=== PATIENT | male | born 1960 | race American Indian/Alaskan Native ===

== ENCOUNTER 2021-08-29 05:00 | Emergency (ER) | payer SELFPAY ==
[~2021-08-29 05:00] MED LIST: EPINEPHrine 1 MG/10 ML SYRINGE ONE
[2021-08-29] MEDS ORDERED: SODIUM CHLORIDE 0.9% 1000 ML 1,000 ML ONE ×2 (05:42→05:58)
[2021-08-29] MEDS ORDERED: VERAPAMIL 5 MG/2 ML INJ ONE (05:51)
[2021-08-29] MEDS ORDERED: HEPARIN 10,000 UNITS/10 ML VIAL ONE ×2 (05:51→06:02)
[2021-08-29] MEDS ORDERED: HEPARIN/NS 5000 UNIT/500ML 1,000 ML IR ONE (05:51)
[2021-08-29] MEDS ORDERED: LIDOCAINE (2%) 20 MG/1 ML VIAL 50 ML MDV INFILTRATI ONE (05:52)
[2021-08-29] MEDS ORDERED: NITROGLYCERIN SYRINGE 3 ML ONE (05:52)
[2021-08-29] MEDS ORDERED: ASPIRIN 300 MG RECT SUPP PR ONE (05:52)
--- NOTE | 2021-08-29 05:52 | Emergency Department Report ---
ED CPR HPI - General Stated Complaint: CARDIAC ARREST Time Seen by Provider: 08/29/21 05:47 Source: EMS Mode of arrival: Stretcher Limitations: Altered Mental Status, Physical Limitation - History of Present Illness Initial Comments: 60-year-old male with no known past medical history presents to the hospital after witnessed cardiac arrest while at a gas station. EMS received a call at approximately 4:18 AM and arrived to the scene at 4:35 AM. They found patient in asystole. He was intubated with 7.0 ET tube. He developed PEA and V. tach and during resuscitation efforts received epinephrine x4, sodium bicarb x1, amiodarone 300 mg IV push, 200 J shock, and had a blood glucose of 120. Patient arrived to the ER at 5 AM in PEA arrest - Related Data Previous Rx's Medication Instructions Recorded Last Taken Type amLODIPine 10 mg PO QDAY #30 tablet 01/24/16 Unknown Rx carvediloL [Coreg] 12.5 mg PO BID #60 tablet 01/24/16 Unknown Rx hydrALAZINE [Apresoline TAB] 50 mg PO Q8HR #90 tablet 01/24/16 Unknown Rx Allergies Allergy/AdvReac Type Severity Reaction Status Date / Time No Known Allergies Allergy Unverified 01/21/16 18:34 ED Review of Systems ROS: Stated complaint: CARDIAC ARREST Other details as noted in HPI Comment: Unobtainable due to pts medical conditions ED Past Medical Hx - Past Medical History Hx Hypertension: Yes - Social History Smoking Status: Current Some Day Smoker - Medications Home Medications: Home Medications Medication Instructions Recorded Confirmed Last Taken Type amLODIPine 10 mg PO QDAY #30 tablet 01/24/16 Unknown Rx carvediloL [Coreg] 12.5 mg PO BID #60 tablet 01/24/16 Unknown Rx hydrALAZINE [Apresoline TAB] 50 mg PO Q8HR #90 tablet 01/24/16 Unknown Rx ED Physical Exam - Other Other exam information: General: Unresponsive Head: Atraumatic Eyes: normal appearance ENT: Orally intubated 7.0 ET tube with frothy sputum with bagging Neck: Normal appearance, no midline tenderness Chest: Clear to auscultation bilaterally CV: Initially pulseless Abdomen: Soft, normal bowel sounds, nontender Back: Normal inspection Extremity: No spontaneous movement Neuro: GCS equals to Psych: Unresponsive Skin: Warm to touch ED Course - Reevaluation(s) Reevaluation #1: 08/29/21 05:57 Patient arrived at 5 AM in PEA cardiac arrest. Patient received 7 doses of epinephrine for recurrent PEA arrest and then had V. tach arrest requiring multiple Defibrillator shock at 200 J (x3) and additional amiodarone 150 mg. After return of spontaneous circulation patient medicated with heparin, aspirin, and IV potassium ordered for hypokalemia. Case discussed with interventional several times and they should arrive to the hospital so - Consultations Consultation #1: 08/29/21 05:14 Once patient regained his pulse a stat EKG was performed. Patient shows signs of acute anterior FL. Case discussed with Dr. Naveen Chen who agrees and [facility] has been activated ED Medical Decision Making - EKG Data -: EKG Interpreted by Me (EKG performed at 5:10 AM positive for acute FL) EKG shows normal: sinus rhythm, ST-T waves (anterior st elevation) Rate: bradycardia - Medical Decision Making 60-year-old male with no known past medical history presents to hospital cardiopulmonary arrest. Restless weakness at the gas station. Return of spontaneous circulation after extended resuscitation efforts. EKG reveals ST elevation FL. Patient had multiple episodes of pulselessness that required intervention with return of spontaneous circulation. Patient to be transferred to the [facility] for acute intervention Critical Care Time: Yes Critical care time in (mins) excluding proc time.: 60 Critical care attestation.: If time is entered above; I have spent that time in minutes in the direct care of this critically ill patient, excluding procedure time. Critical Care Time: 60 Minutes of critical care time excluding procedures were used in the care of the patient. I came immediately to the bedside upon patient's arrival. I obtained history from EMS at the bedside. I discussed treatment plan with the nursing team members. P atient required multiple interventions and reassessments. Spoke with hospitalist and consultants for collaborative care ED Disposition Clinical Impression: Cardiopulmonary arrest with successful resuscitation, Acute ST elevation myocardial infarction (STEMI), Hypokalemia Disposition: 20 Is pt being admited?: Yes Condition: Critical Time of Disposition: 06:05 (Dr mead/hospitalist)
[2021-08-29] MEDS ORDERED: LIDOCAINE PF 100 MG/5 ML (CARDIAC SYRINGE) IV ONE (05:55)
[2021-08-29] MEDS ORDERED: ATROPINE 0.1% (1 MG/10 ML) CARDIAC SYRINGE ONE ×2 (05:55→07:03)
[2021-08-29] MEDS ORDERED: EPINEPHrine 1 MG/10 ML SYRINGE ONE ×2 (05:55→06:24)
[2021-08-29] MEDS ORDERED: POTASSIUM CHLORIDE 10 MEQ 10 MEQ/100 ML BAG IV SCH (06:00)
[2021-08-29] MEDS ORDERED: HEPARIN/NS 5000 UNIT/500ML 500 ML IR ONE (06:01)
[2021-08-29] MEDS ORDERED: traMADol 50 MG TAB PO PRN (06:13)
[2021-08-29] MEDS ORDERED: NITROGLYCERIN 0.4 MG TAB SUBL SL PRN (06:13)
[2021-08-29] MEDS ORDERED: MORPHINE 4 MG/1 ML INJ IV PRN (06:13)
[2021-08-29] MEDS ORDERED: ACETAMINOPHEN 325 MG TAB PO PRN (06:13)
[2021-08-29] MEDS ORDERED: FUROSEMIDE 40 MG/4 ML INJ ONE ×2 (06:23→07:06)
--- NOTE | 2021-08-29 06:23 | History and Physical Report ---
History of Present Illness Date of examination: 08/29/21 Date of admission: 08/29/21 Chief complaint: ST elevation CO History of present illness: 60-year-old male with no known past medical history presents to the hospital after witnessed cardiac arrest while at a gas station. EMS received a call at approximately 4:18 AM and arrived to the scene at 4:35 AM. They found patient in asystole. He was intubated with 7.0 ET tube. He developed PEA and V. tach and during resuscitation efforts received epinephrine x4, sodium bicarb x1, amiodarone 300 mg IV push, 200 J shock, and had a blood glucose of 120. Patient arrived to the ER at 5 AM in PEA arrest Patient had multiple episodes of pulselessness that required intervention with return of spontaneous circulation. Patient to be transferred to the [facility] for acute intervention. All the labs are pending. History is limited due to patient mental condition. Please follow the lab and get more history when available Past History Past Medical History: CAD Past Surgical History: No surgical history Social history: no significant social history Family history: no significant family history Medications and Allergies Allergies Allergy/AdvReac Type Severity Reaction Status Date / Time No Known Allergies Allergy Unverified 01/21/16 18:34 Home Medications Medication Instructions Recorded Confirmed Last Taken Type amLODIPine 10 mg PO QDAY #30 tablet 01/24/16 Unknown Rx carvediloL [Coreg] 12.5 mg PO BID #60 tablet 01/24/16 Unknown Rx hydrALAZINE [Apresoline TAB] 50 mg PO Q8HR #90 tablet 01/24/16 Unknown Rx Active Meds: Active Medications Acetaminophen (Acetaminophen 325 Mg Tab) 650 mg PO Q6H PRN PRN Reason: Pain, Mild (1-3) Amlodipine Besylate (Amlodipine 10 Mg Tab) 10 mg PO QDAY ANKIT Aspirin (Aspirin Ec 325 Mg Tab) 325 mg PO QDAY ANKIT Atorvastatin Calcium (Atorvastatin 40 Mg Tab) 40 mg PO QHS ANKIT Carvedilol (Carvedilol 12.5 Mg Tab) 12.5 mg PO BID ANKIT Heparin Sodium (Porcine) (Heparin 5,000 Unit/1 Ml Vial) 5,000 unit SUB-Q Q12HR ANKIT Hydralazine HCl (Hydralazine 25 Mg Tab) 50 mg PO Q8HR ANKIT Potassium Chloride (Kcl 10meq/100ml) 10 meq in 100 mls @ 100 mls/hr IV Q1H [facility] Stop: 08/29/21 07:59 Sodium Chloride (Nacl 0.9% 1000 Ml) 1,000 mls @ 100 mls/hr IV DIRECT ANKIT Morphine Sulfate (Morphine 4 Mg/1 Ml Inj) 2 mg IV Q5MIN PRN PRN Reason: Chest Pain unrelieved by NTG Nitroglycerin (Nitroglycerin 0.4 Mg Tab Subl) 0.4 mg SL Q5M PRN PRN Reason: Chest Pain Pantoprazole Sodium (Pantoprazole 40 Mg Tab) 40 mg PO QDAY ANKIT Sodium Chloride (Sodium Chloride 0.9% 10 Ml Flush Syringe) 10 ml IV PRN PRN PRN Reason: LINE FLUSH Tramadol HCl (Tramadol 50 Mg Tab) 50 mg PO Q6H PRN PRN Reason: Pain, Moderate (4-6) Review of Systems All systems: negative Cardiovascular: chest pain Exam - Constitutional General appearance: Present: no acute distress, well-nourished - EENT Eyes: Present: PERRL ENT: hearing intact, clear oral mucosa - Neck Neck: Present: supple, normal ROM - Respiratory Respiratory effort: normal Respiratory: bilateral: CTA - Cardiovascular Heart Sounds: Present: S1 & S2. Absent: rub, click - Extremities Extremities: pulses symmetrical, No edema Peripheral Pulses: within normal limits - Abdominal General gastrointestinal: Present: soft, non-tender, non-distended, normal bowel sounds Male genitourinary: Present: normal - Integumentary Integumentary: Present: clear, warm, dry - Musculoskeletal Musculoskeletal: gait normal, strength equal bilaterally - Psychiatric Psychiatric: other (Patient is on vent) - Neurologic Neurologic: CNII-XII intact, moves all extremities, other (Patient is on vent) Assessment and Plan VTE prophylaxis?: Chemical Plan of care discussed with patient/family: Yes - Patient Problems (1) Acute ST elevation myocardial infarction (STEMI) Status: Acute Plan to address problem: Admit the patient to the critical care unit. Aspirin 325 mg p.o. daily. Lipitor 40 mg p.o. daily. We consulted interventional radiology for cardiac cath. We also consult critical care evaluations. Serial cardiac enzyme. (2) Accelerated hypertension Status: Acute Plan to address problem: Amlodipine 10 mg p.o. daily. Coreg 12.5 mg p.o. twice daily. Hydralazine 50 mg p.o. every 8 hours (3) Cardiopulmonary arrest with successful resuscitation Status: Acute Plan to address problem: Aspirin 325 mg p.o. daily. Lipitor 40 mg p.o. daily. We consulted interventional radiology for cardiac cath. We also consult critical care evaluations. Serial cardiac enzyme. (4) Hypokalemia Status: Acute Plan to address problem: Potassium is supplemented. Follow BMP (5) DVT prophylaxis Status: Acute Plan to address problem: Heparin 5000 units subcu every 12 hours for DVT prophylaxis. Further anticoagulation as per cardiology. Protonix 40 mg p.o. daily for GI prophylaxis. Patient is a full code. History is limited
[2021-08-29] MEDS ORDERED: AMIODARONE 150 MG/3 ML INJ IV ONE (06:24)
[2021-08-29] MEDS ORDERED: NITROGLYCERIN DRIP 50 MG/250 ML BOTTLE ONE (06:24)
[2021-08-29] MEDS ORDERED: SODIUM CHLORIDE 0.9% 1000 ML 1,000 ML IV SCH (06:30)
[2021-08-29] MEDS ORDERED: DOPamine 800 MG/D5W 250ML 800 MG/250 ML BAG IV ONE (06:30)
[2021-08-29] MEDS: PHENYLEPHRINE/NS 1,000 MCG/10 ML SYRINGE (OR USE) IV ONE ×3 (06:32→06:37)
[2021-08-29] MEDS ORDERED: SODIUM CHLORIDE 0.9% 250ML 0 ML ONE (06:42)
[2021-08-29] MEDS: EPINEPHrine 1 MG/10 ML SYRINGE ONE ×4 (06:48→06:51)
--- NOTE | 2021-08-29 07:35 | Event Note ---
Date: 08/29/21 Event note/ summary Patient is a 60-year-old male who presented to the hospital for cardiac arrest. Patient apparently was found in a gas station with a witnessed syncopal episode. EMS were called. There was a delay by the time the EMS could get to the patient. Apparently patient was in asystole. He was then transported to the emergency room where there was prolonged CPR. After several rounds of CPR multiple shocks patient regained his pulse and blood pressure. Patient was taken to the [facility]. In the [facility] patient had significant hypotension bradycardia and went into PEA. Several rounds of CPR was done. Balloon pump was placed however patient progressed into PEA. Even prior to patient being transferred to the [facility] table patient's pupils were fixed and dilated and patient was having involuntary nonspecific movements. In view of the fixed dilated pupil prolonged CPR and persistent PEA the code was called off. Patient went into asystole at 7:32 AM. Time of 7:32 AM
--- NOTE | 2021-08-29 07:47 | Event Note ---
Date: 08/29/21 At around 6:42AM I was called to the [facility] in response to a patient with cardiac arrest. Patient is when transferred to [facility] from the ED with STEMI this morning. He was stabilized and transferred to [facility]. Pt was having CPR when I arrived at the [facility] been directed by the produce team lead in discharge. I did treated in giving chest compression during this process. At around 20 minutes into the resuscitation process ROSC was achieved and patient was stabilized I left the [facility] and return to the emergency room.
[2021-08-29] MEDS ORDERED: PANTOPRAZOLE 40 MG TAB PO SCH (10:00)
[2021-08-29] MEDS ORDERED: carvediloL 12.5 MG TAB PO SCH (10:00)
[2021-08-29] MEDS ORDERED: amLODIPine 10 MG TAB PO SCH (10:00)
[2021-08-29] MEDS ORDERED: HEPARIN 5,000 UNIT/1 ML VIAL SUB-Q SCH (10:00)
--- NOTE | 2021-08-29 11:47 | Electrocardiograph Report ---
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 Right bundle branch block LVH with secondary repolarization abnormality ST elevations in V1-3,consider acute anteroseptal NM. No previous ECG available for comparison Electronically Signed On 08-29-2021 11:46:46 EDT by Geovanny Sanon
[2021-08-29] MEDS ORDERED: hydrALAZINE 25 MG TAB PO SCH (14:00)
[2021-08-30] MEDS ORDERED: ASPIRIN EC 325 MG TAB PO SCH (10:00)
--- NOTE | 2021-08-31 09:30 | Electrocardiograph Report ---
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
--- NOTE | 2021-09-11 17:49 | Cardiac Catherization Report ---
DATE OF SERVICE: 08/29/2021 CORONARY ANGIOGRAM REPORT PROCEDURES PERFORMED: 1. Selective left and right coronary angiogram. 2. Left ventriculogram. 3. Successful deployment of an intraaortic balloon pump. 4. Unsuccessful CPR. INDICATION: [id number] cardiac arrest with EKG showing anterior ST-elevation PA. PROCEDURE DETAILS: Informed consent could not be obtained from the patient as the patient was [id number] cardiac arrest. The patient was cleaned and draped in the usual sterile fashion. Using the standard protocol and after infiltration of local anesthesia, a 6-Yakut sheath was placed in the right radial artery. Left and right coronary angiogram was done using the left and right coronary catheters. Left ventriculogram was done using a JR4 diagnostic catheter. After the initial angiogram, we decided to proceed with an intraaortic balloon pump placement. Intraaortic balloon pump was placed successfully. However, post-balloon pump placement, the patient deteriorated and CPR was initiated. After several rounds of CPR, we were unable to revive the patient and we decided to call the code off. Just to note that the patient has had several rounds of CPR both at the site of the cardiac arrest and also in the Emergency Room. Due to prolonged CPR, fixed dilated pupils, we decided to call the code off and pronounced the patient . FINDINGS: Hemodynamics: Initially, blood pressure was 208/127. However, the patient quickly deteriorated, requiring vasopressors. ANGIOGRAM DETAILS: 1. Left main is angiographically normal. 2. LAD is 100% occluded just after giving off a long diagonal. The diagonal has a proximal 80% stenosis and severe diffuse disease distally. 3. The circumflex is a medium-caliber vessel with a 50% proximal stenosis. Several OMs have moderate diffuse disease. 4. The RCA is a large-caliber vessel. There are widely patent stents with minimal luminal irregularities and in-stent restenosis. Faint collaterals are seen filling the LAD. 5. Left ventriculogram done in PORTER projection shows severe diffuse hypokinesis, EF 20-25%. PLAN: The patient presented with [id number] cardiac arrest. Angiogram revealed 100% LAD occlusion. However, we wanted to proceed with balloon pump to stabilize the patient prior to possible PCI. However, post-balloon pump, the patient deteriorated and code initiated. Patient has had several rounds of CPR at the site of carrdiac arrest then in the ER as well. Pupils were fixed and dilated. After futile CPR in the quality assurance/r&d lab technician we decided to stop. Patient few minutes after stopping the code. TID: [id number] RECEIPT: [id number] ROSA/TONY/MEAGAN RAGSDALE
== END 2021-08-29 09:00 ==
LOC: ED 05:00
DX: I46.9 Cardiac arrest, cause unspecified (principal); I21.3 ST elevation (STEMI) myocardial infarction of unspecified site; E87.6 Hypokalemia; F17.200 Nicotine dependence, unspecified, uncomplicated
CPT/HCPCS: 33967; 92950; 93005; 93458; 96365; 96366; 96375; 99291; C1887; C1894; J0171; J0282; J0461; J1265; J1644; J1815; J1940; J2370; J3490; J7030; 99285; J2001; J7050; Q9967